=== PATIENT | male | born 1965 | race Two or more races ===

== ENCOUNTER 2016-12-01 16:51 | Emergency (ER) | payer BC ==
[~2016-12-01] VITALS: Ht 167.6 cm; Wt 68.0 kg
[2016-12-01] MEDS ORDERED: METFORMIN HCL500 M1 ORAL (17:44)
[2016-12-01 19:02] VITALS: BP 159/81
[2016-12-01] MEDS ORDERED: IBUPROFEN600 MG ORAL (19:04)
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
--- NOTE | 2016-12-02 13:12 | Diagnostic Imaging Report ---
Indication: Pain 3 views of the left knee were obtained. Findings: There is small focus of air projected over the suprapatellar pouch. This is presumably iatrogenic such as a recent joint aspiration correlate clinically. Unfortunately the lucency is only seen on the lateral view not appreciated on the other 2 projections. Please correlate clinically. If no procedure has performed recently and suggest repeating the left knee examination. There is no acute fracture seen. There is no malalignment. Impression: No acute injury identified. Small focus of lucency projected over some patellar pouch on the lateral view. This may be a small focus of air within the joint space and may be accounted for by recent procedure such as a joint aspiration. If there is no such history, recommend repeating the x-ray. Without antecedent history of intervention, air in the joint space would be concerning for infection.
== END 2016-12-01 19:02 | disposition home or self-care (01) ==
LOC: EMR 17:39
DX: S80.02XA Contusion of left knee, initial encounter (principal); E11.9 Type 2 diabetes mellitus without complications; X58.XXXA Exposure to other specified factors, initial encounter; Y93.55 Activity, bike riding; Y92.9 Unspecified place or not applicable
CPT/HCPCS: 29530; 99283

== ENCOUNTER 2017-02-28 12:25 | Emergency (ER) | payer BC ==
[~2017-02-28] VITALS: Ht 167.6 cm; Wt 68.0 kg
[~2017-02-28 12:25] MED LIST: IBUPROFEN600 MG ORAL; METFORMIN HCL500 M1 ORAL
[2017-02-28] MEDS ORDERED: IBUPROFEN600 MG ORAL (14:25)
[2017-02-28 14:37] VITALS: BP 123/74
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
--- NOTE | 2017-03-02 16:05 | Diagnostic Imaging Report ---
Indication: Pain 3 views of the left knee were obtained. Findings: There is opacification of the suprapatellar pouch consistent with joint effusion. No definite fracture or malalignment identified. In pression: Joint effusion
== END 2017-02-28 14:41 | disposition home or self-care (01) ==
LOC: EMR 13:10
DX: S80.02XA Contusion of left knee, initial encounter (principal); X58.XXXA Exposure to other specified factors, initial encounter; Y93.55 Activity, bike riding; Y92.9 Unspecified place or not applicable; E11.9 Type 2 diabetes mellitus without complications
CPT/HCPCS: 29530; 99283